=== PATIENT | male | born 1990 | race African-American/Black ===

== ENCOUNTER 2018-03-04 17:49 | Emergency (ER) | payer SELFPAY ==
--- NOTE | 2018-03-04 18:04 | PDOC ---
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 He notes that the episode began today and he rates it a 10/10 in severity. He notes that he saw Dr. Gaston Jones (Urologist, [facility]) in office 2 years ago, no treatment given or necessary at that time. He notes that he was able to retract the foreskin with no blood in urine or discharge. The patient denies chest pain, shortness of breath, headache and dizziness. Denies fever, chills, nausea, vomiting, diarrhea or constipation. Denies dysuria , frequency, urgency and hematuria. Allergies: None Past surgical history: None reported Social History: No alcohol, tobacco or drug use reported It is noted that Dr. Cedric Burnette (urologist) came to the bedside and he started the injection (corporal aspirations). 03/04/18 21:[address] Bain (rayon coner), and the [facility] Cable Splicer Assistant Dr. Elkins. Both specialist do not recommend exchange transfusion as an appropriate treatment at the time. Intervention by urologist resolved priaspm. - Physicial Exam PE: 03/04/18 19:59 Constitutional: Awake, alert, oriented. No acute distress. Head: Normocephalic. Atraumatic Eyes: PERRL. EOMI. Conjunctivae are not pale. ENT: Mucous membranes are moist and intact. Posterior pharynx without exudates or erythema. Uvula midline. Neck: Supple. Full ROM. No lymphadenopathy. Cardiovascular: Regular rate. Regular rhythm. S1, S2 regular. Distal pulses are 2+ and symmetric. Pulmonary/Chest: No evidence of respiratory distress. Clear to auscultation bilaterally No wheezing, rales or rhonchi. Abdominal: Soft and non-distended. There is no tenderness. No rebound, guarding or rigidity. No organomegaly. No palpable masses. Good bowel sounds. Back: No CVA tenderness. : (+) PRAIPISM ERECTION Musculoskeletal: No edema. No cyanosis. No clubbing. Full range of motion in all extremities. Nocalf tenderness. Radial/pedal pulses are intact and 2+ bilaterally Skin: Skin is warm and dry. No petechiae. No purpura. Neurological: Alert and oriented to person, place, and time. Cranial nerves II -XII are grossly intact. Normal speech. Strength is grossly symmetric. No sensory deficits. Psychiatric: Good eye contact. Normal interaction, affect and behavior. <Brian Fernandez - Last Filed: 03/04/18 21:31> - Resident Resident Name: Amos Perry - ED Attending Attestation I have performed the following: I have examined & evaluated the patient, The case was reviewed & discussed with the resident, I agree w/resident's findings & plan, Exceptions are as noted - HPI HPI: 03/04/18 18:13 27-year-old male with history of sickle cell disease presents with 5 hours priapism. He had 1 prior episode but it only lasted for an hour and resolved - Medical Decision Making 03/05/18 01:45 IMP SSC, priaspism resolved pt referred to hematology and urology <Jennifer Cruz - Last Filed: 03/05/18 01:46>
[2018-03-04] MEDS ORDERED: morphine CARPU-JECT 4 MG/1 ML DISP.SYRIN IVPUSH ONE ×3 (18:18→19:10)
[2018-03-04] MEDS ORDERED: morphine SULFATE 4 MG/ML VIAL ONE ×4 (18:19→19:44)
[2018-03-04 18:31] VITALS: TEMP 98.9; BMI 25.7
--- NOTE | 2018-03-04 18:38 | PDOC ---
History of Present Illness - General Chief Complaint: Sickle Cell Crisis Stated Complaint: PAIN Time Seen by Provider: 03/04/18 18:04 History Source: Patient Exam Limitations: No Limitations - History of Present Illness Initial Comments: 03/04/18 18:30 27 yo male, pmh significant for sickle cell (diagnosed as a child) and priapism presents to the ED for sudden onset penile erection with associated pain. Patient states the episode started 5 hours ago upon waking up and has been consistent with 10/[address] Gaston Jones (Urologist, [facility]) in office 2 years ago, no treatment given or necessary at that time. Patients PCP was Dr. Grant who retired 1 year ago, no new PCP. Not followed by Hematology. He is able to retract his foreskin with no blood in urine or discharge. Denies CP or SOB. Past History - Past Medical History Allergies/Adverse Reactions: Allergies Allergy/AdvReac Type Severity Reaction Status Date / Time No Known Allergies Allergy Verified 03/04/18 18:31 Home Medications: Ambulatory Orders NK [No Known Home Medication] 03/04/18 Review of Systems - Review of Systems Constitutional: No: Chills, Fever HEENTM: No: Blurred Vision, Double Vision Respiratory: No: Shortness of Breath Cardiac (ROS): No: Chest Pain, Palpitations ABD/GI: No: Abdominal Distended, Nausea, Vomiting : Yes: Pain (penile). No: Burning, Dysuria, Discharge, Frequency, Hematuria Musculoskeletal: No: Back Pain Integumentary: Yes: Other (no discharge). No: Change in Color Neurological: No: Headache, Numbness, Paresthesia *Physical Exam - Physical Exam General Appearance: Yes: Nourished, Appropriately Dressed, Apparent Distress ( pacing back and forth in pain. Erect penis ) HEENT: positive: EOMI Respiratory/Chest: positive: Lungs Clear, Normal Breath Sounds Cardiovascular: positive: Regular Rhythm, Regular Rate, S1, S2. negative: Edema , Murmur Vascular Pulses: Dorsalis-Pedis (R): 4+, Doralis-Pedis (L): 4+ Gastrointestinal/Abdominal: positive: Normal Bowel Sounds, Flat, Soft Male Genitalia: positive: other (erect penis). negative: discharge, hematuria Extremity: positive: Normal Capillary Refill Integumentary: positive: Dry, Warm Neurologic: positive: Fully Oriented, Alert, Normal Mood/Affect, Normal Response ED Treatment Course - LABORATORY CBC & Chemistry Diagram: 03/04/18 18:27 03/04/18 18:27 - Medications Given in the ED: ED Medications Discontinued Medications Generic Name Dose Route Start Last Admin Trade Name Josy PRN Reason Stop Dose Admin Morphine Sulfate 4 mg 03/04/18 18:18 03/04/18 18:26 Morphine Injection - IVPUSH 03/04/18 18:19 4 mg ONCE ONE Administration Medical Decision Making - Medical Decision Making 03/04/18 20:52 27 yo male with history of sickle cell and priapism presents to the ED for sudden onset priapism. Not followed by hematology and not on any medications. Urology called, give a total of 14 mg morphine IV, 90mg pseudophed, on 4L O2 NC and penis drained with 18 gauge needle and give 0.5mg of phenylephrine. Penis erection reduced and patient resting comfortably. Spoke with Hematology at both [facility] and [facility] (Dr. 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 Please return to the Emergency Room for new or worsening symptoms including but not limited to: continuation of pain and an erection that does not end, urinating blood, loss of sensation in the penis or urinary incontinence. Take over the counter motrin for pain relief - Post Discharge Activity Forms/Work/School Notes: Back to Work
[2018-03-04] MEDS ORDERED: SODIUM CHLORIDE 1,000 ML IV STA (18:46)
[2018-03-04 18:47] LABS: BASO % 0.8 % (0-2.0); EOS % 0.4 % (0-4.5); HEMATOCRIT 40.7 % (35.4-49); HEMOGLOBIN 14.4 GM/dL (11.7-16.9); LYMPH % 33.6 % (8-40); MCH 29.8 pg (25.7-33.7); MCHC 35.3 g/dl (32.0-35.9); MEAN CELL VOLUME 84.5 fl (80-96); MEAN PLT VOLUME 9.5 fl (7.5-11.1); MONO % 12.3 % (3.8-10.2); NEUT % 52.9 % (42.8-82.8); PLATELET COUNT 333 K/MM3 (134-434); RBC 4.82 M/mm3 (4.00-5.60); RDW 17.4 % (11.9-15.9); RETICULOCYTES 3.44 % (0.5-1.5); WHITE BLOOD COUNT 9.6 K/mm3 (4.0-10.0)
[2018-03-04 19:02] LABS: ALBUMIN 4.6 g/dl (3.4-5.0); ALK PHOS 57 U/L (45-117); ANION GAP 13 MMOL/L (8-16); BILIRUBIN,TOTAL 1.3 mg/dL (0.2-1.0); BLOOD UREA NITROGEN 12 mg/dL (7-18); CALCIUM 9.6 mg/dL (8.5-10.1); CHLORIDE 104 mmol/L (98-107); CO2 23 mmol/L (21-32); CREATININE 0.8 mg/dL (0.7-1.3); GLUCOSE,RANDOM 112 mg/dL (74-106); SGPT/ALT 47 U/L (12-78); SODIUM 140 mmol/L (136-145); TOT PROT 8.2 g/dl (6.4-8.2)
[2018-03-04 19:03] LABS: POTASSIUM 4.2 mmol/L (3.5-5.1); SGOT/AST 46 U/L (15-37)
[2018-03-04] MEDS ORDERED: PSEUDOEPHEDRINE HCL 60 MG TABLET ONE (19:21)
[2018-03-04] MEDS ORDERED: morphine CARPU-JECT 2 MG/1 ML DISP.SYRIN IVPUSH ONE (19:27)
[2018-03-04] MEDS ORDERED: PSEUDOEPHEDRINE HCL 30 MG TABLET PO ONE (19:30)
[2018-03-04] MEDS ORDERED: PHENYLEPHRINE HCL 10 MG/1 ML SINGLE DOSE VIAL ONE (19:31)
--- NOTE | 2018-03-04 20:25 | CON.GU ---
Consult Consult Specialty:: Referred by:: Alexandra Reason for Consultation:: priapism - History of Present Illness Chief Complaint: painful prolonged erection History of Present Illness: 27 yo m w hx sickle cell anemia who p/w painful erection for 5 hrs. In the ED he was given O2, MSO4, ivfs w/o relief and cons req. - History Source History Provided By: Patient, Medical Record Limitations to Obtaining History: No Limitations - Smoking History Smoking history: Never smoked Home Medications - Allergies Allergies/Adverse Reactions: Allergies Allergy/AdvReac Type Severity Reaction Status Date / Time No Known Allergies Allergy Verified 03/04/18 18:31 - Home Medications Home Medications: Ambulatory Orders NK [No Known Home Medication] 03/04/18 Physical Exam- Vital Signs: Vital Signs Temperature 98.9 F 03/04/18 18:27 Pulse Rate 85 03/04/18 18:27 Respiratory Rate 18 03/04/18 18:27 Blood Pressure 144/77 03/04/18 19:29 O2 Sat by Pulse Oximetry (%) 97 03/04/18 18:27 Gastrointestinal: Yes: WNL, Normal Bowel Sounds, Soft Kidneys: Yes: WNL Pelvis: Yes: WNL Testicles: Yes: WNL Scrotum: Yes: WNL Penis: Yes: Priapism Prostate Exam: Yes: Deferred Musculoskeletal: Yes: WNL Extremities: Yes: WNL Labs: CBC, BMP 03/04/18 18:27 03/04/18 18:27 Problem List - Problems (1) 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 He will need exchange transfusion. Would consult hematology. Code(s): D57.1 - SICKLE-CELL DISEASE WITHOUT CRISIS; N48.32 - PRIAPISM DUE TO DISEASE CLASSIFIED ELSEWHERE (2) Sickle cell anemia Code(s): D57.1 - SICKLE-CELL DISEASE WITHOUT CRISIS
[2018-03-04 21:06] VITALS: BP 133/81; PULSE 97
--- NOTE | 2018-03-04 21:06 | PDOC ---
Attending Attestation - Resident Resident Name: Amos Perry - ED Attending Attestation I have performed the following: I have examined & evaluated the patient, The case was reviewed & discussed with the resident, I agree w/resident's findings & plan, Exceptions are as noted - HPI HPI: 03/04/18 21:04 27 yo male p.w with painful priapism and has sickle cell disease - Physicial Exam PE: 03/05/18 01:48 wnwd 27 yo male head ncat neck supple lungs cta b/l cvs [id number] abd soft,nontender + priapism ext no edema neuro axox3,no gross focal neuro deficits - Medical Decision Making 03/05/18 01:56 prispism relieved with corporal aspiration and phenyphredrine injections
== END 2018-03-04 21:51 | disposition home or self-care (01) ==
LOC: JER 17:49
PROC: 3E0337Z Introduction of Electrolytic and Water Balance Substance into Peripheral Vein, Percutaneous Approach (ICD-10-PCS; principal; 2018-03-04)
PROC: 3E033NZ Introduction of Analgesics, Hypnotics, Sedatives into Peripheral Vein, Percutaneous Approach (ICD-10-PCS; 2018-03-04)
DX: N48.32 Priapism due to disease classified elsewhere (principal); D57.1 Sickle-cell disease without crisis
CPT/HCPCS: 36415; 80053; 85025; 85044; 86850; 86900; 86901; 99284-25; J7030

== ENCOUNTER 2018-04-21 11:55 | Emergency (ER) | payer OTHER ==
[2018-04-21 12:09] VITALS: BP 150/90; PULSE 88; BMI 25.7
--- NOTE | 2018-04-21 12:14 | PDOC ---
History of Present Illness - General Chief Complaint: Pain, Acute Stated Complaint: PRIAPISM Time Seen by Provider: 04/21/18 12:12 - History of Present Illness Initial Comments: 27yo M with sickle cell trait presenting with priapism. Patient said he noticed the pain at 9:17 this morning and may have been erect overnight. The pain is rated 9/10. Reports that this episode is similar to one on 03/04/18 for which he presented to this ED and was detumesced by Dr. Burnette, a urologist. He also endorses back pain that radiates from his penis. Denies penile bleeding or discharge. No recent trauma. Patient does not take any medications and has never had surgery. Denies dysuria or hematuria. No fevers, chills, chest pain, shortness of breath, or abdominal pain. Past History - Past Medical History Allergies/Adverse Reactions: Allergies Allergy/AdvReac Type Severity Reaction Status Date / Time No Known Allergies Allergy Verified 04/21/18 12:04 Home Medications: Ambulatory Orders Amoxicillin/Potassium Clav [Augmentin 875-125 Tablet] 1 each PO BID 5 Days #10 tablet 04/21/18 COPD: No Other medical history: sickle cell - Suicide/Smoking/Psychosocial Hx Smoking History: Never smoked Review of Systems - Review of Systems Comments:: Constitutional: no fever, no chills HEENT: no throat pain, no dysphagia Cardiovascular: no chest pain, no palpitations Respiratory: no cough, no shortness of breath Gastrointestinal: no abdominal pain, no nausea, no vomiting, no diarrhea, no constipation Genitourinary:+penile pain, no dysuria, no frequency Musculoskeletal: no myalgia, no arthralgia Skin: no rash, no itching Neurologic: no headache, no dizziness *Physical Exam - Vital Signs Last Vital Signs Temp Pulse Resp BP Pulse Ox 88 26 H 150/90 04/21/18 12:07 04/21/18 12:07 04/21/18 12:07 - Physical Exam Comments: General: Awake, alert, and fully oriented, pacing the room in distress Head: no signs of trauma Eyes: EOMI, sclera anicteric ENT: Moist mucus membranes Neck: Normal ROM, supple Lungs: Lungs clear, Normal breath sounds Cardio: Regular rhythm, S1 and S2 present Abdomen: Soft, nontender. No guarding, no rebound, no masses Extremities: Normal range of motion, Distal pulses present : Erect penis with no wound or lesion, no discharge or bleeding SKIN: Warm, Dry, normal turgor Neurologic: Cranial nerves II through XII grossly intact. Normal speech ED Treatment Course - LABORATORY CBC & Chemistry Diagram: 04/21/18 13:07 04/21/18 13:07 Medical Decision Making - Medical Decision Making 27yo M with sickle cell trait presenting with priapism. -DDX includes but not limited to priapism due to sickle cell, trauma, medicinal priapism -Labs: no leukocytosis or anemia, Hgb 14, Reticulocyte 3.1, LDH 269 -CXR to assess for acute chest: no acute pathology -Patient declined morphine as it has made him nauseous in the past. Given percocet. -Spoke with urologist, Dr. Burnette, who will come to perform the detumescence procedure 04/21/18 13:08 -Dr. 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 The urologist performed a procedure which improved your symptoms. Antibiotics prescription sent to your pharmacy: Take 1 tablet twice a day for five days. You can take [id number] tylenol or motrin for pain. Follow the instructions on the medication bottle. Follow up with the well logging operator mud analysis in the next 2-3 days. Follow-up with the urologist in the next 5-7 days. Call and make an appointment at the number provided. Immediate medical attention is required if you experience: High fevers, chest pain, shortness of breath, pain not controlled by home medications, persistent priapism, or any new or concerning symptoms. If you think you are having an emergency, call for emergency medical services or present to the emergency department right away. - Post Discharge Activity Forms/Work/School Notes: Back to Work
[2018-04-21] MEDS ORDERED: SODIUM CHLORIDE 1,000 ML IV STA (12:33)
[2018-04-21] MEDS ORDERED: morphine CARPU-JECT 4 MG/1 ML DISP.SYRIN IVPUSH ONE (12:33)
[2018-04-21] MEDS ORDERED: LIDOCAINE HCL 1%, 10 MG/ML (50 mL VIAL) SQ ONE (12:55)
[2018-04-21] MEDS ORDERED: PHENYLEPHRINE HCL 10 MG/1 ML SINGLE DOSE VIAL NR ONE (13:00)
[2018-04-21 13:17] LABS: BASO % 1.2 % (0-2.0); EOS % 0.3 % (0-4.5); HEMATOCRIT 41.4 % (35.4-49); LYMPH % 27.7 % (8-40); MCH 28.9 pg (25.7-33.7); MCHC 33.8 g/dl (32.0-35.9); MEAN CELL VOLUME 85.4 fl (80-96); MEAN PLT VOLUME 8.7 fl (7.5-11.1); MONO % 10.9 % (3.8-10.2); NEUT % 59.9 % (42.8-82.8); PLATELET COUNT 344 K/MM3 (134-434); RBC 4.85 M/mm3 (4.00-5.60); RDW 17.6 % (11.9-15.9)
[2018-04-21] MEDS ORDERED: LIDOCAINE HCL 1%, 10 MG/ML (20ML VIAL) ONE (13:21)
[2018-04-21] MEDS ORDERED: PHENYLEPHRINE HCL 10 MG/1 ML SINGLE DOSE VIAL ONE (13:22)
[2018-04-21] MEDS ORDERED: LORazepam 2 MG/ML SDV VIAL ONE (13:23)
[2018-04-21 13:35] LABS: ALBUMIN 4.4 g/dl (3.4-5.0); ALK PHOS 60 U/L (45-117); ANION GAP 5 MMOL/L (8-16); BILIRUBIN,TOTAL 1.2 mg/dL (0.2-1); BLOOD UREA NITROGEN 10 mg/dL (7-18); CHLORIDE 108 mmol/L (98-107); CO2 23 mmol/L (21-32); CREATININE 0.8 mg/dL (0.55-1.3); GLUCOSE,RANDOM 121 mg/dL (74-106); POTASSIUM 3.8 mmol/L (3.5-5.1); SGOT/AST 31 U/L (15-37); SGPT/ALT 38 U/L (13-61); SODIUM 135 mmol/L (136-145); TOT PROT 8.1 g/dl (6.4-8.2)
[2018-04-21] MEDS ORDERED: HYDROmorphone HCL CARPU-JECT 2 MG/1 ML DISP.SYRIN IVPB ONE (13:35)
[2018-04-21] MEDS ORDERED: ONDANSETRON 4 MG/2 ML VIAL IVPUSH ONE (13:35)
[2018-04-21] MEDS ORDERED: HYDROmorphone HCl 2 MG/ML VIAL ONE (13:36)
--- NOTE | 2018-04-21 13:43 | PDOC ---
Attending Attestation - Resident Resident Name: Tonie Iglesias - ED Attending Attestation I have performed the following: I have examined & evaluated the patient, The case was reviewed & discussed with the resident, I agree w/resident's findings & plan, Exceptions are as noted - HPI HPI: 04/21/18 13:39 The patient is a 27 year old male with a significant past medical history of sickle cell trait and priapism who reports to the ED with priapism since awakening today at 9am. Pt reports pain in his penis, denies any recent dysuria/ F/C. No scrotal pain. Pt had one prior episode that required drainage by urology. - Physicial Exam PE: 04/21/18 13:39 GENERAL: Awake, alert, and fully oriented HEAD: No signs of trauma EYES: PERRLA, EOMI, sclera anicteric, conjunctiva clear ENT: Auricles normal inspection, hearing grossly normal, nares patent, oropharynx clear without exudates. Moist mucosa NECK: Nontender, no stepoffs, Normal ROM, supple, no lymphadenopathy, JVD, or masses LUNGS: Breath sounds equal, clear to auscultation bilaterally. No wheezes, and no crackles HEART: Regular rate and rhythm, normal S1 and S2, no murmurs, rubs or gallops ABDOMEN: Soft, nontender, normoactive bowel sounds. No guarding, no rebound. No masses EXTREMITIES: Normal range of motion, no edema. No clubbing or cyanosis. No cords, erythema, or tenderness NEUROLOGICAL: Cranial nerves II through XII intact. 5/5 strength and sensation in all extremities, Normal speech, normal gait, normal cerebellar function SKIN: Warm, Dry, normal turgor, no rashes or lesions noted. : Uncircumcised penis, tumesced, scrotum wnl - Medical Decision Making 04/21/18 13:38 27 M with sickle cell trait presenting with recurrent priapism. - Labs - Urology at bedside to drain priapism 04/21/18 15:09 Pt's priapism drained successfully Labs unremarkable. Hb stable Pt reassessed - now feels much better, much more comfortable appearing. RR 16 currently. Pt is well appearing, with normal vitals. Clinically stable for DC at this time. I discussed the physical exam findings, ancillary test results and final diagnoses with the patient. I answered all of the patient's questions. The patient was satisfied with the care received and felt comfortable with the discharge plan and treatment plan. The patient agrees to follow up with the primary care physician within 24-72 hours.
--- NOTE | 2018-04-21 13:54 | CON.GU ---
Consult Consult Specialty:: Referred by:: FLORIN CRAVEN Reason for Consultation:: priapism - History of Present Illness Chief Complaint: painful prolonged erection History of Present Illness: 27 yo aam w hx sickle cell trait, hx priapism last mo s/p asp and irrigation p/ w painful prolonged erection since this AM. cons req. - Smoking History Smoking history: Never smoked Home Medications - Allergies Allergies/Adverse Reactions: Allergies Allergy/AdvReac Type Severity Reaction Status Date / Time No Known Allergies Allergy Verified 04/21/18 12:04 - Home Medications Home Medications: Ambulatory Orders NK [No Known Home Medication] 03/04/18 Physical Exam- Vital Signs: Vital Signs Temperature Pulse Rate 88 04/21/18 12:07 Respiratory Rate 26 H 04/21/18 12:07 Blood Pressure 150/90 04/21/18 12:07 O2 Sat by Pulse Oximetry (%) Penis: Yes: Priapism, Other Labs: CBC, BMP 04/21/18 13:07 04/21/18 13:07 Problem List - Problems (1) 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 rto 1 week Code(s): D57.1 - SICKLE-CELL DISEASE WITHOUT CRISIS; N48.32 - PRIAPISM DUE TO DISEASE CLASSIFIED ELSEWHERE
[2018-04-21] MEDS ORDERED: AMOX TR/POT CLAV 875MG/125MG TABLETS (FP) PO ONE (14:00)
[2018-04-21] MEDS ORDERED: AMOX TR/POT CLAV 875MG/125MG TABLETS (FP) ONE (14:10)
[2018-04-21] MEDS ORDERED: ONDANSETRON 4 MG/2 ML VIAL ONE (14:11)
--- NOTE | 2018-04-22 11:11 | EKG ---
Test Reason : Blood Pressure : / mmHG Vent. Rate : 055 BPM Atrial Rate : 055 BPM P-R Int : 152 ms QRS Dur : 106 ms QT Int : 426 ms P-R-T Axes : 060 055 044 degrees QTc Int : 407 ms SINUS BRADYCARDIA MINIMAL VOLTAGE CRITERIA FOR LVH, MAY BE NORMAL VARIANT BORDERLINE ECG NO PREVIOUS ECGS AVAILABLE Confirmed by LANDON TRINIDAD MD ([id number]) on 04/22/2018 11:10:58 AM Referred By: Confirmed By:LANDON TRINIDAD MD
== END 2018-04-21 16:20 | disposition home or self-care (01) ==
LOC: JER 11:55
PROC: 3E0337Z Introduction of Electrolytic and Water Balance Substance into Peripheral Vein, Percutaneous Approach (ICD-10-PCS; principal; 2018-04-21)
PROC: 3E033GC Introduction of Other Therapeutic Substance into Peripheral Vein, Percutaneous Approach (ICD-10-PCS; 2018-04-21)
PROC: 3E033NZ Introduction of Analgesics, Hypnotics, Sedatives into Peripheral Vein, Percutaneous Approach (ICD-10-PCS; 2018-04-21)
PROC: 3E033NZ Introduction of Analgesics, Hypnotics, Sedatives into Peripheral Vein, Percutaneous Approach (ICD-10-PCS; 2018-04-21)
PROC: 3E1N38Z Irrigation of Male Reproductive using Irrigating Substance, Percutaneous Approach (ICD-10-PCS; 2018-04-21)
DX: D57.1 Sickle-cell disease without crisis (principal); N48.32 Priapism due to disease classified elsewhere
CPT/HCPCS: 36415; 71045-TC-FY; 80053; 83615; 85025; 85044; 93005; 93010; 99281-25; J7030

== ENCOUNTER 2018-07-06 16:12 | Emergency (ER) | payer OTHER ==
--- NOTE | 2018-07-06 16:45 | PDOC ---
Rapid Medical Evaluation Time Seen by Provider: 07/06/18 16:44 Medical Evaluation: Allergies Allergy/AdvReac Type Severity Reaction Status Date / Time morphine AdvReac Nausea Verified 07/06/18 16:43 07/06/18 16:44 I have performed a brief in-person evaluation of this patient. The patient presents with a chief complaint of: awoke w/ possible recurrent priapism this am. S/p aspiration 07/20 by for same 04/19. H/o sickle cell trait only per pt Pertinent physical exam findings:stable, defer rest o0f exam to ED team I have ordered the following: nothing, walked immediately in rm 6. ED attg made aware The patient will proceed to the ED for further evaluation. Discharge Disposition - Diagnosis Priapism - Referrals Referrals: Cortes Tillman [Primary Care Provider] - - Patient Instructions - Post Discharge Activity
[2018-07-06 16:46] VITALS: BMI 25.5
--- NOTE | 2018-07-06 17:05 | PDOC ---
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 He takes no regular prescription medications or any other daily medications, but has been taking cold/flu medications because a few days ago he was sick with flu-like symptoms, but he feels better now. He denies overexertion or difficulty breathing or dehydration and states he has been drinking plenty of fluids. He denies any drug or marijuana use, states that he has been drinking more EtOH than normal because of the holidays. Otherwise he denies any symptoms. No testicular pain or swelling. No other bodily pain. Past History - Past Medical History Allergies/Adverse Reactions: Allergies Allergy/AdvReac Type Severity Reaction Status Date / Time morphine AdvReac Nausea Verified 07/06/18 16:43 Home Medications: Ambulatory Orders Amoxicillin/Potassium Clav [Augmentin 875-125 Tablet] 1 each PO BID 5 Days #10 tablet 04/21/18 COPD: No Other medical history: DENIES - Suicide/Smoking/Psychosocial Hx Smoking History: Never smoked Review of Systems - Review of Systems Able to Perform ROS?: Yes Comments:: 07/06/18 19:23 GEN: no fever, chills, malaise, generalized weakness, or weight change HEENT: no ear pain, sore throat, vision change, or eye pain CV: no chest pain, palpitations, lightheadedness, syncope, or edema RESP: no cough, wheezing, or SOB GI: no abdominal pain, nausea, vomiting, diarrhea, constipation, or white/black/ bloody stool : priapism, no dysuria, hematuria, incontinence, retention, bleeding, or discharge MSK: no neck/back pain, muscle weakness/pain, or joint swelling/pain NEURO: no headache, seizure, vertigo, numbness, tingling, or focal weakness PSYCH: no substance use, no behavior change SKIN: no jaundice, no rash ROS otherwise negative except as noted in HPI *Physical Exam - Vital Signs Last Vital Signs Temp Pulse Resp BP Pulse Ox 98 F 83 19 130/85 98 07/06/18 16:44 07/06/18 16:44 07/06/18 16:44 07/06/18 16:44 07/06/18 16:44 - Physical Exam Comments: 07/06/18 19:24 GENERAL: uncomfortable appearing, pacing in the room, A/Ox4, answers questions appropriately HEENT: PERRLA, EOMI, moist mucous membranes NECK/BACK: no hematoma, full ROM, neck supple CARDIOVASCULAR: regular rate/rhythm, normal S1S2, no MGR, strong peripheral pulses, capillary refill <2 seconds, extremities wwp, no edema LUNGS/RESPIRATORY: no respiratory distress, CTAB GI/ABDOMEN: symmetric [id number], normoactive BS, soft, no ttp, no midline pulsatile masses : no CVA tenderness, uncircumcised, priapism noted, penis diffusely ttp, no distal skin changes but skin is cool distally, firmness noted to scrotum, no testicular pain or swelling, normal testicular lay, normal cremasteric reflexes EXTREMITIES: no muscle atrophy, no acute deformity, no edema SKIN: warm and dry, no pallor, no jaundice, no rash, no bruising, no skin breakdown, no cuts, no lesions NEUROLOGICAL: GCS 15, CN II-XII grossly intact, 5/5 strength proximally and distally, no facial droop Moderate Sedation - Procedure Monitoring Vital Signs: Procedure Monitoring Vital Signs Temperature 98 F 07/06/18 16:44 Pulse Rate 83 07/06/18 16:44 Respiratory Rate 07/06/18 16:44 Blood Pressure 130/85 07/06/18 16:44 O2 Sat by Pulse Oximetry (%) 98 07/06/18 16:44 ED Treatment Course - LABORATORY CBC & Chemistry Diagram: 07/06/18 17:31 07/06/18 17:31 Medical Decision Making - Medical Decision Making 07/06/18 17:18 Adult male Pt with SC trait and prior priapism who p/w recurrent priapism. Not on any medications at home. Initial Vital Signs Temp Pulse Resp BP Pulse Ox 98 F 83 19 130/85 98 07/06/18 16:44 07/06/18 16:44 07/06/18 16:44 07/06/18 16:44 07/06/18 16:44 Exam: As noted in Physical Exam section. DDX IBNLT: this is priapism possibly d/t ischemic priapism or high flow. Most likely 2/2 his SC trait which seems to be interestingly symptomatic. W/U ordered: CBCD Retic count CMP Coags T&S UA UCx EKG TX ordered: IVF, Ofirmev EKG: Reviewed; results as noted in ECG Review section. Laboratory Tests 07/06/18 07/06/18 07/06/18 17:31 17:31 17:32 WBC 12.2 H RBC 4.30 Hgb 12.8 Hct 36.2 MCV 84.1 MCH 29.7 MCHC 35.3 RDW 18.5 H Plt Count 466 H D MPV 8.3 Absolute Neuts (auto) 8.6 H Neutrophils % 70.1 Lymphocytes % 19.9 D Monocytes % 8.9 Eosinophils % 0.1 Basophils % 1.0 Nucleated RBC % 0 Platelet Estimate Increased Platelet Comment Rare giant plts Retic Count 3.53 H D PT with INR 14.50 H INR 1.23 H Sodium 136 Potassium 3.9 Chloride 103 Carbon Dioxide 24 Anion Gap 9 BUN 11 Creatinine 0.9 Creat Clearance w eGFR > 60 Random Glucose 117 H Calcium 9.0 Total Bilirubin 0.8 AST 36 ALT 48 Alkaline Phosphatase 57 LD Total 286 H Total Protein 8.0 Albumin 4.0 ADMIT The Pt is unsafe for discharge at this time. They require further hospital observation, workup, and treatment. Microblog sent to [facility] for admission.Blank Decision to Admit order is placed per ED protocol. Spoke with admitting team appliance service representative, in agreement Pt to be admitted. Decision to Admit order corrected with admitting team covering attendings name. 07/06/18 17:[address] Burnette who had drained the patient's previous priapism while validation technician for [facility]. Requests that we call the on-call provider for Urology. We have placed a page to Dr. Garduno. 07/06/18 17:[address] Garduno. Recommends we take phenylephrine 10 mg/mL and make a 1:10 with NS. (Every mg phenylephrine is 1 cc of this dilution). We are to put a half cc in corpus cavernosum and wait 10 min to see if this resolves. We can put another half cc if that doesn't work and wait another 10 minutes. Can use small ~25 g needle. If that does not work we need to drain it. 07/06/18 19:00 We have injected 0.5cc 1 mg/cL phenylephrine and waited 15 minutes with no improvement. We subseqently drained 38cc blood from corpus cavernosum after dorsal penile block. Penile tissue softened somewhat after aspiration but still very painful/tender. 20 minutes later priapism persisted, patient states feels somewhat better. I spoke again with Dr. Garduno; the patient may need more invasive procedure and he recommends xfer to [facility]. There has been modest improvement without complete resolution of priapism. The patient is agreeable to go to [facility] (prefers this over [place]). 07/06/18 19:26 I have spoken with Dr. Quezada with Urology at [facility]. Patient going to [facility] ED-ED transfer. Paperwork filled out and signed by appropriate parties. EMS arrives and transfers patient to their stretcher and their ambulance without issue. *DC/Admit/Observation/Transfer Diagnosis at time of Disposition: Priapism, Sickle cell trait - Discharge Dispostion Disposition: TRANSFER ACUTE CARE/OTHER HOSP Condition at time of disposition: Stable - Referrals Referrals: Cortes Tillman [Primary Care Provider] - - Patient Instructions - Post Discharge Activity - Transfer to Acute Care Facility Receiving Facility: [facility]. Accepting Physician:: Dr. Quezada
[2018-07-06] MEDS ORDERED: ACETAMINOPHEN 1000 MG/100 ML VIAL (NON FORMULARY) IVPB ONE (17:06)
[2018-07-06] MEDS ORDERED: SODIUM CHLORIDE 0.9% 500 ML INFUS.BAG IV ONE (17:06)
--- NOTE | 2018-07-06 17:18 | PDOC ---
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 He states the pain has been progressively increasing. He denies any other complaints or associated symptoms. The patient denies chest pain, shortness of breath, headache and dizziness. The patient denies fever, chills, nausea, vomit, diarrhea and constipation. The patient denies dysuria, frequency, urgency and hematuria. Allergies: morphine Past surgical history: none reported Social history: Occasional ETOH, denies tobacco or illicit drug use. Documentation prepared by Gabbi Farley, acting as medical accounts receivable specialist for Charles Yeboah MD <Gabbi Farley - Last Filed: 07/06/18 18:21> - Resident Resident Name: Kim Burgess - ED Attending Attestation I have performed the following: I have examined & evaluated the patient, The case was reviewed & discussed with the resident, I agree w/resident's findings & plan, Exceptions are as noted - Physicial Exam PE: 07/06/18 18:48 Patient is awake and alert, in moderate distress No scleral icterus cta rrr + Priapism - Medical Decision Making 07/06/18 18:48 Patient is a 27-year-old male with history of sickle cell trait with recurrent priapism requiring aspiration on several occasions presents to the ER approximately 5 hours after the onset of priapism. Given the duration of symptoms and the urgency of the presentation, case discussed with urology and the decision was made to inject the compressor cover no some with phenylephrine and if no prompt relief, to perform aspiration of the cavernosa. After administration of phenylephrine, patient reported no relief after a period of approximately 15 minutes and under sterile conditions after performing a penile block, aproximally 35 mL of dark blood was aspirated. Patient reported improvement in the level of his discomfort. Will observe. Will discuss with urology prior to discharge. 07/06/18 19:57 Patient's pain has improved however he still exhibits erectile penis and complains of mild discomfort. Dr. Bueno of urology reconsulted and recommends transfer to a tertiary care facility for possible surgical intervention. Will transfer to [facility]. <Charles Yeboah - Last Filed: 07/06/18 19:58>
[2018-07-06] MEDS ORDERED: ACETAMINOPHEN INJECTION 100 ML IVPB ONE (17:19)
[2018-07-06 17:38] LABS: EOS % 0.1 % (0-4.5); HEMATOCRIT 36.2 % (35.4-49); HEMOGLOBIN 12.8 GM/dL (11.7-16.9); LYMPH % 19.9 % (8-40); MCH 29.7 pg (25.7-33.7); MCHC 35.3 g/dl (32.0-35.9); MEAN CELL VOLUME 84.1 fl (80-96); MEAN PLT VOLUME 8.3 fl (7.5-11.1); MONO % 8.9 % (3.8-10.2); NEUT % 70.1 % (42.8-82.8); RDW 18.5 % (11.9-15.9); RETICULOCYTES 3.53 % (0.5-1.5); WHITE BLOOD COUNT 12.2 K/mm3 (4.0-10.0)
[2018-07-06] MEDS ORDERED: LIDOCAINE HCL 1%, 10 MG/ML (20ML VIAL) ONE (17:48)
[2018-07-06] MEDS ORDERED: PHENYLEPHRINE HCL 10 MG/1 ML SINGLE DOSE VIAL ONE (17:48)
[2018-07-06 18:09] LABS: PLATELET COUNT 466 K/MM3 (134-434); PLATELET ESTIMATE INCREASED
[2018-07-06] MEDS ORDERED: LIDOCAINE HCL 1%, 10 MG/ML (50 mL VIAL) INF ONE (18:09)
[2018-07-06 18:15] LABS: INR 1.23 (0.83-1.09); PROTHROMBIN TIME (PATIENT) 14.5 SEC (9.7-13.0)
[2018-07-06] MEDS ORDERED: PHENYLEPHRINE HCL 10 MG/1 ML SINGLE DOSE VIAL NR ONE (18:15)
[2018-07-06 18:36] LABS: ALK PHOS 57 U/L (45-117); ANION GAP 9 MMOL/L (8-16); BILIRUBIN,TOTAL 0.8 mg/dL (0.2-1); BLOOD UREA NITROGEN 11 mg/dL (7-18); CHLORIDE 103 mmol/L (98-107); CO2 24 mmol/L (21-32); CREATININE 0.9 mg/dL (0.55-1.3); GLUCOSE,RANDOM 117 mg/dL (74-106); LDH 286 U/L (87-246); POTASSIUM 3.9 mmol/L (3.5-5.1); SGOT/AST 36 U/L (15-37); SGPT/ALT 48 U/L (13-61); SODIUM 136 mmol/L (136-145)
[2018-07-06 20:10] VITALS: BP 124/84; PULSE 63
[2018-07-06 20:55] VITALS: TEMP 98.1
== END 2018-07-06 21:08 | disposition short-term general hospital (02) ==
LOC: JER 16:12
PROC: 3E033NZ Introduction of Analgesics, Hypnotics, Sedatives into Peripheral Vein, Percutaneous Approach (ICD-10-PCS; principal; 2018-07-06)
PROC: 3E1N38Z Irrigation of Male Reproductive using Irrigating Substance, Percutaneous Approach (ICD-10-PCS; 2018-07-06)
DX: N48.39 Other priapism (principal); D57.3 Sickle-cell trait
CPT/HCPCS: 36415; 80053; 83615; 85025; 85044; 85610; 86850; 86900; 86901; 99284-25; J0131

== ENCOUNTER 2021-09-22 05:29 | Day surgery (SDC) | payer OTHER ==
[2021-09-17 12:48] VITALS: BMI 25.7
[2021-09-22] MEDS ORDERED: MIDAZOLAM HCL 2 MG/2 ML SINGLE DOSE VIAL ONE ×2 (15:18→15:31)
[2021-09-22 16:33] VITALS: TEMP 97.5
[2021-09-22 19:16] VITALS: BP 128/83; PULSE 73
== END 2021-09-22 18:30 | disposition home or self-care (01) ==
LOC: JASU-SURG 05:29
PROVIDERS: ATTEND Urology
PROC: 0TF4XZZ Fragmentation in Left Kidney Pelvis, External Approach (ICD-10-PCS; principal; 2021-09-22 14:30)
DX: N20.0 Calculus of kidney (principal)